=== PATIENT | male | born 1985 | race Caucasian/White ===

== ENCOUNTER → 2022-07-13 08:13 | Outpatient (BNVA) | payer OTHER, SELFPAY | PROVIDERS: Visit Provider Internal Medicine | DX: M25.531 Pain in right wrist (principal); M79.641 Pain in right hand | CPT/HCPCS: 73110; 73130; 99203 ==

== ENCOUNTER → 2022-07-18 11:44 | Outpatient (BNVA) | payer OTHER, SELFPAY | PROVIDERS: Visit Provider Internal Medicine | DX: M25.531 Pain in right wrist (principal); M79.641 Pain in right hand | CPT/HCPCS: 99213 ==

== ENCOUNTER → 2022-11-27 13:12 | Outpatient (BNVA) | payer OTHER, SELFPAY | PROVIDERS: Visit Provider Physician Assistant Medical | DX: S39.012A Strain of muscle, fascia and tendon of lower back, initial encounter (principal); X50.0XXA Overexertion from strenuous movement or load, initial encounter | CPT/HCPCS: 99202 ==

== ENCOUNTER → 2022-12-01 09:49 | Outpatient (BNVA) | payer OTHER, SELFPAY | PROVIDERS: Visit Provider Physician Assistant | DX: S33.9XXA Sprain of unspecified parts of lumbar spine and pelvis, initial encounter (principal); X50.0XXA Overexertion from strenuous movement or load, initial encounter | CPT/HCPCS: 99214 ==

== ENCOUNTER → 2022-12-06 10:44 | Outpatient (BNVA) | payer OTHER, SELFPAY | PROVIDERS: Visit Provider Physician Assistant Medical | DX: S39.012A Strain of muscle, fascia and tendon of lower back, initial encounter (principal); X50.0XXA Overexertion from strenuous movement or load, initial encounter | CPT/HCPCS: 99213 ==

== ENCOUNTER → 2024-03-07 08:52 | Outpatient (BNVA) | payer SELFPAY | PROVIDERS: Visit Provider Registered Nurse | DX: Z02.79 Encounter for issue of other medical certificate (principal) ==

== ENCOUNTER 2024-09-23 09:37 | Emergency (ER) | payer SELFPAY ==
--- NOTE | ~2024-09-23 | XR_ITS ---
EXAMINATION: XR CHEST CLINICAL INFORMATION: chest pain COMPARISON: None available. TECHNIQUE: Frontal view of the chest was obtained. FINDINGS: Linear and patchy opacities stenting from the perihilar regions to the lower hemithoraces. No gross pleural effusion or pneumothorax. Cardiomediastinal silhouette size is normal. Old traumatic deformity mid diaphysis left clavicle. XR/XR chest 1V IMPRESSION: Concerning acute small airway inflammatory process in the correct clinical settings. Traumatic deformity left clavicle likely old. Electronically signed by: Aroldo Feng MD 09/23/2024 10:47 AM EDT
[2024-09-23 10:27] VITALS: BP 142/92; PULSE 80; RESP 16; TEMP 36.4; O2SAT 100; BMI 27.1
--- NOTE | 2024-09-23 10:27 | ECG_ITS ---
Test Reason : chest pain Blood Pressure : */* mmHG Vent. Rate : 80 BPM Atrial Rate : 80 BPM P-R Int : 146 ms QRS Dur : 88 ms QT Int : 352 ms P-R-T Axes : 48 64 32 degrees QTcB Int : 405 ms Normal sinus rhythm Normal ECG When compared with ECG of 05-Oct-2011 01:59, T wave amplitude has decreased in Anterior leads Referred By: Jennifer Samuels Electronically Signed By: RAYMUNDO HERNANDEZ
--- NOTE | 2024-09-23 10:28 | ED.CHESTPAIN ---
HPI - Chest Pain General Chief Complaint: Anxiety Stated Complaint: panic attacks? irregular HR Time Seen by Provider: 09/23/24 11:55 Source: patient and old records reviewed Mode of arrival: ambulatory Limitations: no limitations History of Present Illness ED Provider: JOSELYN SUERO narrative: 38 yo male with PMH no sig PMH not early family of CAD, no recent travel or procedures. He reports over the past week hot flashes, anxiety, chest pains, symptoms not worse with exertion but coffee. No recent new medications. He does have some increased stress. He has no known hx of CAD. He had no preceding illness or infection. He has had a negative stress test 2 years ago. Coffee makes it worse and caffeine makes it worse. Recently started drinking again 8 drinks a night. He has been not drinking for 3+ months due to hx of alcoholism. He does not want help with detox or ETOH services. MD complaint: chest discomfort and other (palpitations, panic attacks) Onset (ago): week(s) (1) Timing of current episode: episodic Prior episodes: Yes Onset: during rest and during exertion Pain radiation: none Severity: mild Quality: other Relieving factors: nothing Exacerbating factors: stress and other (caffeine) Associated symptoms: dyspnea, sense of impending doom and palpitations Treatment prior to arrival: none Related Data Previous Rx's ?Medication ?Instructions ?Recorded cyclobenzaprine 5 mg tablet 5 mg PO BEDTIME PRN muscle spasm 11/27/22 #20 tabs ibuprofen 600 mg tablet 600 mg PO TID PRN pain #30 tabs 11/27/22 hydroxyzine HCl 25 mg tablet 25 mg PO Q8H PRN anxiety #30 tabs 09/23/24 Allergies Allergy/AdvReac Type Severity Reaction Status Date / Time Sulfa (Sulfonamide Allergy Unknown UNKNOWN Unverified 09/23/24 10:29 Antibiotics) (SULFA(SULFONAMIDE ANTIBIOTICS)) Review of Systems Review of Systems: Constitutional : No Weight loss, No Fever, No Chills ENT/Mouth : No sore throat, No Rhinorrhea Eyes: No Eye Pain, No Swelling Cardiovascular : pos Chest Pain, pos SOB, no Dyspnea on Exertion, No Orthopnea, No Edema, pos Palpitations Respiratory : No Cough, No Sputum Gastrointestinal : no Nausea, No Vomiting, No Diarrhea, No abdominal Pain, No Hematochezia, No Melena Genitourinary : No Dysuria, No Urinary Frequency Musculoskeletal : No joint pain, No Myalgias, No Joint Swelling Skin : No Skin Lesions, No rash Neuro : No Weakness, No Numbness, No Dizziness, No Headache Psych : pos Anxiety/Panic, No Depression All other systems reviewed and are negative [facility] Social History Social History Advance Directives: No Advance Directives Information Provided: No Do you have a plan to hurt others: No Plan Physical Exam Vital Signs: Vital Signs: Last Vital Signs Temp 97.9 F 09/23/24 12:07 Pulse 88 09/23/24 12:07 Resp 20 09/23/24 12:07 BP 133/89 09/23/24 12:07 Pulse Ox 98 09/23/24 12:07 O2 Del Method Room Air 09/23/24 12:07 BMI result Body Mass Index 27.1 Appearance: Alert. Oriented X3. No acute distress. Eyes: Pupils equal, round and reactive to light. ENT: Pharynx normal. Neck: Normal inspection. Neck supple. CVS: Normal heart rate and rhythm. Pulses normal. Respiratory: No respiratory distress. Breath sounds normal. Abdomen: Soft and nontender. Skin: Skin warm and dry. Normal skin color. Normal skin turgor. Extremities: No lower extremity edema. No calf ttp Neuro: Oriented X 3. No motor deficit. No sensory deficit. CN2-12 intact Course Course Course Narrative: 38 yo male with PMH no sig PMH not early family of CAD, no recent travel or procedures. He reports over the past week hot flashes, anxiety, chest pains, symptoms not worse with exertion but coffee. At this time will need labs, EKG, CXR. He has no risk factors for ACS, he is PERC negative. He has had a negative stress test 2 years ago. Coffee makes it worse and caffeine makes it worse. Recently started drinking again 8 drinks a night. this is a RAPID medical screening exam the rest of the history and physical exam is to be done by the main provider. JOSELYN 09/23/24 1029am Medical Decision Making Medical Decision Making MDM Narrative: 38 yo male with PMH no sig PMH not early family of CAD, no recent travel or procedures. He reports over the past week hot flashes, anxiety, chest pains, symptoms not worse with exertion but coffee. At this time will need labs, EKG, CXR. He has no risk factors for ACS, he is PERC negative. Has had prior negative cardiac work up. He is PERC negative doubt VTE, symptoms atypical for ACS will obtain EKG and trop, he has distal pulses intact doubt dissection and pain is atypical. Could be anxiety/dehdration/anemia/lyte abnormality. Labs and CXR ordered. Differential Diagnosis Differential Diagnoses: The differential diagnosis associated with the presentation includes anxiety/dehdration/anemia/lyte abnormality Admission/Observation Consideration of admission/observation: Escalation of care including admission/observation considered negative work up stable for DC can get holter with PCP if needed Lab Data MDM Lab Attestation statement: I reviewed the patient's lab results. 09/23/24 10:37 09/23/24 10:37 Labs: Lab Results 09/23/24 Range/Units 10:37 WBC 6.8 (4.8-10.8) X10*3/uL RBC 5.11 (4.60-5.80) X10*6/uL Hgb 16.0 (14.0-18.0) g/dl Hct 45.4 (42.0-52.0) % MCV 88.8 (80.0-98.0) fL MCH 31.3 (27.0-33.0) pg MCHC 35.2 (31.0-36.0) g/dl RDW 13.2 (11.0-16.0) % Plt Count 302 (160-400) X10*3/uL MPV 8.8 L (9.4-12.4) fL Immature Gran % (Auto) 0.7 H (0.0-0.4) % Neut % (Auto) 50.7 (45-73) % Lymph % (Auto) 39.2 (20-40) % [place] % (Auto) 6.6 (2-11) % Eos % (Auto) 1.8 (0-4) % Baso % (Auto) 1.0 (0-2) % Lymph # (Auto) 2.7 (1.2-4.9) X10*3/uL [place] # (Auto) 0.5 (0.1-1.2) X10*3/uL Eos # (Auto) 0.1 (0.0-0.4) X10*3/uL Baso # (Auto) 0.1 (0.0-0.2) X10*3/uL Abs Immat Gran (auto) 0.05 H (0.00-0.03) X10*3/uL Absolute Neuts (auto) 3.4 (2.0-8.3) x10*3/uL Absolute Nucleated RBC 0.000 (0.0-0.012) X10*3/uL Nucleated RBC % (auto) 0.0 (0.0-0.2) /100WBC Sodium 137 (135-145) mmol/L Potassium 4.1 (3.3-5.1) mmol/L Chloride 105 (96-108) mmol/L Carbon Dioxide 26 (22-29) mmol/L Anion Gap 10 L (12-20) BUN 10 (9-16) mg/dL Creatinine 1.11 (0.5-1.4) mg/dL Estim Creat Clear Calc 94.0 Estimated GFR > 60 Random Glucose 86 (60-115) mg/dL Calcium 9.7 (8.4-10.2) mg/dL Magnesium 2.0 (1.6-2.6) mg/dL Total Bilirubin 1.0 (0.0-1.0) mg/dL Direct Bilirubin 0.2 (0.0-0.5) mg/dL AST 25 (5-37) U/L ALT 17 (0-40) U/L Alkaline Phosphatase 65 (39-117) U/L Troponin I High Sens < 2.7 (<3.5-35.0) ng/L Total Protein 7.5 (6.5-8.0) g/dL Albumin 4.9 (3.5-5.0) g/dL Independent Interpretation I performed an independent interpretation of an: EKG and Plain X-Ray (no cough or URI symptoms to suggest infection) Interpretation: Rate: 80 Rhythm: NSR [place]: normal Normal P waves. Normal CARLIE. Normal QRS complex. ST T wave : inverted t wave III, no ADOLFO qTC: 405 prior studies: no acute ischemia The study has been interpreted contemporaneously by me. . Radiology Impression Discussion of test interpretation with radiology: I have reviewed the radiologist's reading. External Record Review External record reviewed: Outpatient record Prescription Management I considered prescription management with: Other Discharge Plan Discharge Clinical Impression: Acute anxiety, Heart palpitations Patient Disposition: Home, Self-Care Instructions: Heart Palpitations (ED), Anxiety (ED) Additional Instructions: labs, EKG and chest xray reassuring today limit caffeine intake stay hydrated follow up with your doctor if this persists you may need a monitor on your chest for 24 hours that looks for any irrregular heartbeat return for any worsening symptoms or concerns. Prescriptions: New hydroxyzine HCl 25 mg tablet 25 mg PO Q8H PRN (Reason: anxiety) Qty: 30 0RF No Action cyclobenzaprine 5 mg tablet 5 mg PO BEDTIME PRN (Reason: muscle spasm) Qty: 20 0RF Rx Instructions: Can take a second dose to 10mg maximum if needed ibuprofen 600 mg tablet 600 mg PO TID PRN (Reason: pain) Qty: 30 0RF Stand Alone Forms: Work/School Release Interventions: ED Discharge Assessment Last Done: 09/23/24 12:07 Discharge Date/Time: 09/23/24 12:08 Print Language: Nigerien
[2024-09-23 10:41] LABS: MANUAL DIFF FLAG NO
[2024-09-23 10:50] LABS: Hematocrit 45.4 % (42.0-52.0); Hemoglobin 16.0 g/dl (14.0-18.0); Imm Gran Abs Auto 0.05 X10*3/uL (0.00-0.03); Imm Gran Pct Auto 0.7 % (0.0-0.4); Lymphocytes Absolute Auto 2.7 X10*3/uL (1.2-4.9); Mean Corpuscular HGB Conc 35.2 g/dl (31.0-36.0); Mean Corpuscular Hemoglobin 31.3 pg (27.0-33.0); Mean Corpuscular Volume 88.8 fL (80.0-98.0); NRBC Abs Auto 0.000 X10*3/uL (0.0-0.012); NRBC Pct Auto 0.0 /100WBC (0.0-0.2); Platelet Count 302 X10*3/uL (160-400); Red Blood Count 5.11 X10*6/uL (4.60-5.80); White Blood Count 6.8 X10*3/uL (4.8-10.8)
[2024-09-23 11:00] LABS: Alanine Aminotransferase 17 U/L (0-40); Albumin Level 4.9 g/dL (3.5-5.0); Alkaline Phosphatase 65 U/L (39-117); Anion Gap 10 (12-20); Aspartate Amino Transferase 25 U/L (5-37); Blood Urea Nitrogen 10 mg/dL (9-16); Calcium 9.7 mg/dL (8.4-10.2); Carbon Dioxide 26 mmol/L (22-29); Chloride 105 mmol/L (96-108); Creatinine Clr Calc Pharmacy 94.0; Estimated Glomerular Filt Rate > 60; Magnesium 2.0 mg/dL (1.6-2.6); Potassium 4.1 mmol/L (3.3-5.1); Sodium 137 mmol/L (135-145); Total Protein 7.5 g/dL (6.5-8.0)
[2024-09-23 11:06] LABS: Troponin-I High Sensitivity < 2.7 ng/L (<3.5-35.0)
[2024-09-23 12:07] VITALS: BP 133/89; PULSE 88; RESP 20; TEMP 36.6; O2SAT 98
--- OUTSIDE RECORDS SUMMARY | 2024-09-23 13:19 | XMS_ITS | Clinical Summary ---
Author Organization [facility] Address [address] [place] [address] Care Team Providers Care Physical Therapy Nurse Name Role Phone Unavailable Primary Care Provider Unavailabl e Social History Tobacco Use Types Packs/Day Years Used Date Smoking Tobacco: Never Assessed Sex and Gender Information Value Date Recorded Sex Assigned at Not on file Legal Sex Male 7:10 PM EST Gender Identity Not on file Sexual Orientation Not on file Plan of Treatment Health Maintenance Due Date Last Done Comments DTaP,Tdap,and Td Vaccines (1 - Tdap) 2005 Hepatitis B Vaccines (1 of 3 - 19+ 3-dose series) 2005 COVID-19 Vaccine (2023-2 5 season) 2023 Influenza Vaccine (#1) 2024 HIB Vaccines Aged Out No longer eligi ble based on patient's age to complete this topic HPV Vaccines Aged Out No longer eligi ble based on patient's age to complete this topic Hepatitis A Vaccines Aged Out No long er eligible based on patient's age to complete this topic IPV Vaccines Aged Out No longer eligi ble based on patient's age to complete this topic MMR Vaccines Aged Out No longer eligi ble based on patient's age to complete this topic Meningococcal ACWY Vaccine Aged Out N o longer eligible based on patient's age to complete this topic Meningococcal B Vaccine Aged Out No l onger eligible based on patient's age to complete this topic Pneumococcal Vaccine: Pediat rics (0 to 5 Years) and At-Risk Patients (6 to 49 Years) Aged Out No longer eligible b ased on patient's age to complete this topic RSV Immunization Patients Un humera 20 months Aged Out No longer eligible b ased on patient's age to complete this topic Varicella Vaccines Aged Out No longer eligible based on patient's age to complete this topic
== END 2024-09-23 12:08 | disposition home or self-care (01) ==
PROVIDERS: Emergency Provider Emergency Medicine
DX: R00.2 Palpitations (principal); F41.9 Anxiety disorder, unspecified; R07.9 Chest pain, unspecified
CPT/HCPCS: 36415; 71045; 80048; 80076; 83735; 84484; 85025; 93005; 99283

== ENCOUNTER → 2024-09-23 10:27 | Outpatient (BNV) | payer SELFPAY | PROVIDERS: Emergency Provider Emergency Medicine; Visit Provider Internal Medicine | DX: R07.9 Chest pain, unspecified (principal) | CPT/HCPCS: 93010 ==

== ENCOUNTER → 2024-09-23 10:27 | Outpatient (BNV) | payer SELFPAY | PROVIDERS: Visit Provider Radiology Diagnostic Radiology | DX: R07.9 Chest pain, unspecified (principal) | CPT/HCPCS: 71045 ==